=== PATIENT | female | born 1945 | race Caucasian/White ===

== ENCOUNTER 2025-02-12 15:38 | Emergency (ER) | payer MEDICARE, OTHER, SELFPAY ==
[2025-02-12] VITALS (19 sets, daily range): BP systolic 112–192; BP diastolic 53–76; PULSE 60–63; RESP 9–31; TEMP 37; O2SAT 94–99; BMI 21.8
--- NOTE | 2025-02-12 18:13 | DI.CT.S_ITS ---
PROCEDURE: CT ANGIO ABD/PEL GI BLEED INDICATIONS: gi bleed TECHNIQUE: After the administration of intravenous contrast, 2.5 mm thick sections acquired from the diaphragm to the symphysis. 10 mm maximum-intensity projection (MIP) reformats were then acquired. For radiation dose reduction, the following was used: automated exposure control. COMPARISON: None. FINDINGS: Image Quality: Diagnostic. Abdominal aorta: No aortic aneurysm or evidence of acute aortic syndrome. Mesenteric arteries: Active GI hemorrhage within the sigmoid colon (series 5, image 168) prior Renal arteries: Patent without hemodynamically significant stenosis. OTHER: Lower Chest: Volume loss within the lingula. Liver: No solid mass. Gallbladder: Large gallstone. No wall thickening. Biliary ducts: No biliary dilation. Pancreas: No ductal dilation. Spleen: Size is within normal limits. Adrenal Glands: No adrenal nodules. Kidneys and Ureters: No hydronephrosis. No solid mass. No complex renal cystic lesion which requires follow up. Stomach and Bowel: Normal colonic caliber, without significant wall thickening. No significant diverticular disease. Peritoneum: No abnormal intraperitoneal fluid. No free air. Ventral Wall: No hernia. Abdominal Nodes: No retroperitoneal or mesenteric adenopathy by size criteria. Vessels: Aorta and inferior vena cava are normal in size. PELVIS: Pelvic Organs: Unremarkable. Bladder: Unremarkable. Pelvic Nodes: No enlarged lymph nodes. Miscellaneous: No inguinal hernias are seen. Bones: No aggressive osseous abnormality. Surgical fusion the lower lumbar spine. Extensive degenerative disc disease. IMPRESSION: Active GI hemorrhage of the sigmoid colon. No significant diverticular disease. Cholelithiasis without wall thickening or adjacent fat stranding to suggest acute cholecystitis. Findings discussed with Dr. Edouard at 7:09 p.mSukh On 02/12/2025. Dictated by: Quirino Milton M.D. on 02/12/2025 at 19:07 Approved by: Quirino Milton M.D. on 02/12/2025 at 19:11
--- NOTE | 2025-02-12 19:11 | PC.NURSE ---
patient is currently in the bathroom, large amount of latasha blood noted, will notify dr Edouard
[2025-02-12 19:12] LABS: Add Manual Diff / Slide Review NO; Hematocrit 36.4 % (36-46); Hemoglobin 12.0 g/dL (12.0-16.0); Lymphocytes Absolute Auto 1400 /uL (1100-4500); Mean Corpuscular HGB Conc 32.9 % (30-36); Mean Corpuscular Hemoglobin 29.8 PG (26-34); Mean Corpuscular Volume 90.5 fL (80-100); Platelet Count 221 X10^3/uL (150-400)
--- NOTE | 2025-02-12 19:19 | ED_ITS ---
HPI - GI Bleed <Abebe Edouard, DO - Last Filed: 02/13/25 07:03> General Chief complaint: GI Bleed Stated complaint: blood in stole Time Seen by Provider: 02/12/25 18:03 Source: patient and family Mode of arrival: Ambulatory History of Present Illness HPI Narrative: 79-year-old female visiting the area with a past medical history significant for atrial fibrillation, pacemaker on Plavix presents with numerous bouts of GI bleed today sudden onset. Patient denies fever chills chest pain shortness breath lightheaded or dizziness. She denies taking any NSAIDs but only Tylenol. Patient has had numerous bouts of bloody diarrhea here in the ER. Other than what is stated 14 point review of system is negative. Related Data Home Medications ?Medication ?Instructions ?Recorded ?Confirmed clopidogrel 75 mg tablet (Plavix) 75 mg PO DAILY 02/1202/12/25 furosemide 20 mg tablet 20 mg PO DAILY PRN weight ga in 02/12/25 02/12/25 levothyroxine 75 mcg capsule 37.5 mcg PO BID 02/12/25 02/12/25 liothyronine 5 mcg tablet 2.5 mcg PO BID 02/12/2501/29 losartan 25 mg tablet 25 mg PO BID 02/12/25 mirtazapine 7.5 mg tablet 7.5 mg PO BEDTIME 02/12/25 0 02/12/25 multivitamin (Daily Multi-Vitamin 1 tab PO DAILY 02/1202/12/25 tablet) pantoprazole 40 mg tablet,delayed 40 mg PO DAILY 02/1202/12/25 release rosuvastatin 10 mg tablet 10 mg PO DAILY 02/12/2501/29 sotalol 80 mg tablet 80 mg PO Q12H 02/12/2502/12 Allergies Allergy/AdvReac Type Severity Reaction Status Date / Time azithromycin Allergy Unknown Verified 02/12/25 19:48 erythromycin base Allergy Unknown Verified 02/12/25 19:48 Review of Systems <Abebe Edouard DO - Last Filed: 02/13/25 07:03> Review of Systems ROS Unobtainable: All systems reviewed & are unremarkable except as noted in HPI and below Patient History <Abebe Edouard DO - Last Filed: 02/13/25 07:03> Social History Smoking Status: Never smoker Smoking Status: Never smoker Alcohol type: wine Exam <Abebe Edouard DO - Last Filed: 02/13/25 07:03> Narrative Exam Narrative: GENERAL: [79] year old patient appears stated age. Well-developed patient, in mild distress. HEAD: Atraumatic. Normocephalic. EYES: Pupils equal round and reactive. Extraocular motions intact. No scleral icterus. No injection or drainage. NECK: Trachea midline. Non tender CARDIOVASCULAR: Regular rate and rhythm without murmurs, gallops, or rubs. RESPIRATORY: Clear to auscultation. Breath sounds equal bilaterally. No wheezes, rales, or rhonchi. GASTROINTESTINAL: Abdomen soft, non-tender, nondistended. Rectum: No anal fissure or hemorrhoids EXTREMITIES: No edema or joint tenderness. BACK: Nontender without deformity or crepitance. No flank tenderness. NEURO: AOx3. SKIN: No rash or erythema of visible areas Initial Vital Signs Initial Vital Signs: Vital Signs Temperature 98.6 F 02/12/25 16:00 Pulse Rate 60 02/12/25 16:00 Respiratory Rate 18 02/12/25 16:00 Blood Pressure 146/70 H 02/12/25 16:00 Pulse Oximetry 98 02/12/25 16:00 Oxygen Delivery Method Room Air 02/12/25 16:00 <Anton Ward MD - Last Filed: 02/13/25 16:50> Initial Vital Signs Initial Vital Signs: Vital Signs Temperature 98.6 F 02/12/25 16:00 Pulse Rate 60 02/12/25 16:00 Respiratory Rate 18 02/12/25 16:00 Blood Pressure 146/70 H 02/12/25 16:00 Pulse Oximetry 98 02/12/25 16:00 Oxygen Delivery Method Room Air 02/12/25 16:00 Course <Abebe Edouard DO - Last Filed: 02/13/25 07:03> Orders Ordered: ED Orders 02/13/25 08:06 CBC Auto Diff [Complete Blood Count AUTO DIFF] Stat 02/13/25 08:45 transfuse [Packed Cells] Stat Discontinued Medications Acetaminophen (Acetaminophen 325 Mg Tablet) 650 mg PO Q6H PRN PRN Reason: Fever/Mild Pain (1-3) Lactated Ringer's (Lactated Ringers) 1,000 mls @ 1,000 mls/hr IV BOLUS ONE Stop: 02/12/25 19:12 Last Infusion: 02/12/25 22:24 Dose: Infused Documented By: HNAb Admin: 02/12/25 20:16 Dose: 1,000 mls/hr Documented By: JASPREET Sodium Chloride (Normal Saline 0.9%) 1,000 mls @ 100 mls/hr IV CONT AIME Last Admin: 02/13/25 01:15 Dose: Not Given Documented By: AB Lactated Ringer's (Lactated Ringers) 1,000 mls @ 1,000 mls/hr IV BOLUS ONE Stop: 02/13/25 00:28 Last Infusion: 02/13/25 02:26 Dose: Infused Documented By: Admin: 02/13/25 01:22 Dose: 1,000 mls/hr Documented By: AB Lactated Ringer's (Lactated Ringers) 1,000 mls @ 150 mls/hr IV CONT AIME Last Infusion: 02/13/25 09:24 Dose: Infused Documented By: Admin: 02/13/25 03:41 Dose: 150 mls/hr Documented By: AB Naloxone HCl (Naloxone 0.4 Mg/Ml Vial) 0.2 mg IV Q2MIN PRN PRN Reason: Opiate Reversal Ondansetron HCl (Ondansetron 4 Mg/2 Ml Inj) 4 mg IV NOW PRN PRN Reason: Nausea And Vomiting Ondansetron HCl (Ondansetron 4 Mg Odt) 4 mg PO NOW PRN PRN Reason: Nausea And Vomiting Pantoprazole Sodium (Pantoprazole 40 Mg Vial) 40 mg IV NOW ONE Stop: 02/12/25 20:51 Last Admin: 02/12/25 21:16 Dose: 40 mg Documented By: JASPREET Pantoprazole Sodium (Pantoprazole 40 Mg Vial) 40 mg IV BID AIME Polyethylene Glycol/Electrolytes ([id number]/Sod Sulf,Bicarb,Cl/Kcl 4,000 Ml Solution) 2,000 ml PO NOW ONE Stop: 02/12/25 21:00 Last Admin: 02/13/25 01:15 Dose: Not Given Documented By: AB Vital Signs Vital signs: Vital Signs - 8 hr 02/13/25 09:00 02/13/25 09:00 02/13/25 09:15 Temperature Pulse Rate 60 62 Respiratory Rate 16 22 Blood Pressure 95/50 L Pulse Oximetry 98 98 Oxygen Delivery Method 02/13/25 09:15 02/13/25 09:25 02/13/25 09:26 Temperature 98.1 F Pulse Rate 60 60 Respiratory Rate 21 27 H Blood Pressure 109/59 L 85/47 L Pulse Oximetry 99 Oxygen Delivery Method 02/13/25 09:26 02/13/25 09:30 02/13/25 09:30 Temperature Pulse Rate 60 Respiratory Rate 22 Blood Pressure 85/47 L 94/51 L Pulse Oximetry 99 Oxygen Delivery Method 02/13/25 09:45 02/13/25 09:45 02/13/25 09:45 Temperature 97.4 F L Pulse Rate 60 60 Respiratory Rate 25 H 28 H Blood Pressure 96/55 L 97/54 L Pulse Oximetry 98 Oxygen Delivery Method 02/13/25 09:48 02/13/25 09:48 02/13/25 10:00 Temperature Pulse Rate 60 60 Respiratory Rate 17 15 Blood Pressure 96/55 L Pulse Oximetry 98 98 Oxygen Delivery Method 02/13/25 10:00 02/13/25 10:15 02/13/25 10:15 Temperature Pulse Rate 61 Respiratory Rate 23 Blood Pressure 86/49 L 89/51 L Pulse Oximetry 97 Oxygen Delivery Method 02/13/25 10:18 02/13/25 10:30 02/13/25 10:30 Temperature 98.1 F Pulse Rate 60 60 Respiratory Rate 24 17 Blood Pressure 89/51 L 89/51 L Pulse Oximetry 96 Oxygen Delivery Method 02/13/25 10:45 02/13/25 10:45 02/13/25 10:50 Temperature 97.4 F L Pulse Rate 60 60 Respiratory Rate 18 19 Blood Pressure 100/50 L 100/50 L Pulse Oximetry 96 Oxygen Delivery Method 02/13/25 11:00 02/13/25 11:00 02/13/25 11:15 Temperature Pulse Rate 60 Respiratory Rate 18 Blood Pressure 106/56 L 102/50 L Pulse Oximetry 95 Oxygen Delivery Method 02/13/25 11:15 02/13/25 11:30 02/13/25 11:30 Temperature Pulse Rate 60 60 Respiratory Rate 16 20 Blood Pressure 86/50 L Pulse Oximetry 96 96 Oxygen Delivery Method 02/13/25 11:31 02/13/25 11:37 02/13/25 11:37 Temperature 97.7 F Pulse Rate 60 60 Respiratory Rate 16 21 Blood Pressure 86/50 L 93/52 L Pulse Oximetry 95 Oxygen Delivery Method 02/13/25 11:45 02/13/25 11:45 02/13/25 11:47 Temperature 97.5 F L Pulse Rate 60 60 Respiratory Rate 17 14 Blood Pressure 95/47 L 95/47 L Pulse Oximetry 96 Oxygen Delivery Method 02/13/25 12:00 02/13/25 12:00 02/13/25 12:15 Temperature 98.6 F Pulse Rate 60 60 60 Respiratory Rate 16 19 20 Blood Pressure 96/52 L 96/51 L 96/53 L Pulse Oximetry 96 97 Oxygen Delivery Method Room Air <Anton Ward MD - Last Filed: 02/13/25 16:50> Orders Ordered: ED Orders 02/13/25 08:06 CBC Auto Diff [Complete Blood Count AUTO DIFF] Stat 02/13/25 08:45 transfuse [Packed Cells] Stat Discontinued Medications Acetaminophen (Acetaminophen 325 Mg Tablet) 650 mg PO Q6H PRN PRN Reason: Fever/Mild Pain (1-3) Lactated Ringer's (Lactated Ringers) 1,000 mls @ 1,000 mls/hr IV BOLUS ONE Stop: 02/12/25 19:12 Last Infusion: 02/12/25 22:24 Dose: Infused Documented By: Admin: 02/12/25 20:16 Dose: 1,000 mls/hr Documented By: JASPREET Sodium Chloride (Normal Saline 0.9%) 1,000 mls @ 100 mls/hr IV CONT AIME Last Admin: 02/13/25 01:15 Dose: Not Given Documented By: AB Lactated Ringer's (Lactated Ringers) 1,000 mls @ 1,000 mls/hr IV BOLUS ONE Stop: 02/13/25 00:28 Last Infusion: 02/13/25 02:26 Dose: Infused Documented By: Admin: 02/13/25 01:22 Dose: 1,000 mls/hr Documented By: AB Lactated Ringer's (Lactated Ringers) 1,000 mls @ 150 mls/hr IV CONT AIME Last Infusion: 02/13/25 09:24 Dose: Infused Documented By: Admin: 02/13/25 03:41 Dose: 150 mls/hr Documented By: AB Naloxone HCl (Naloxone 0.4 Mg/Ml Vial) 0.2 mg IV Q2MIN PRN PRN Reason: Opiate Reversal Ondansetron HCl (Ondansetron 4 Mg/2 Ml Inj) 4 mg IV NOW PRN PRN Reason: Nausea And Vomiting Ondansetron HCl (Ondansetron 4 Mg Odt) 4 mg PO NOW PRN PRN Reason: Nausea And Vomiting Pantoprazole Sodium (Pantoprazole 40 Mg Vial) 40 mg IV NOW ONE Stop: 02/12/25 20:51 Last Admin: 02/12/25 21:16 Dose: 40 mg Documented By: JASPREET Pantoprazole Sodium (Pantoprazole 40 Mg Vial) 40 mg IV BID AIME Polyethylene Glycol/Electrolytes ([id number]/Sod Sulf,Bicarb,Cl/Kcl 4,000 Ml Solution) 2,000 ml PO NOW ONE Stop: 02/12/25 21:00 Last Admin: 02/13/25 01:15 Dose: Not Given Documented By: AB Vital Signs Vital signs: Vital Signs - 8 hr 02/13/25 09:00 02/13/25 09:00 02/13/25 09:15 Temperature Pulse Rate 60 62 Respiratory Rate 16 22 Blood Pressure 95/50 L Pulse Oximetry 98 98 Oxygen Delivery Method 02/13/25 09:15 02/13/25 09:25 02/13/25 09:26 Temperature 98.1 F Pulse Rate 60 60 Respiratory Rate 21 27 H Blood Pressure 109/59 L 85/47 L Pulse Oximetry 99 Oxygen Delivery Method 02/13/25 09:26 02/13/25 09:30 02/13/25 09:30 Temperature Pulse Rate 60 Respiratory Rate 22 Blood Pressure 85/47 L 94/51 L Pulse Oximetry 99 Oxygen Delivery Method 02/13/25 09:45 02/13/25 09:45 02/13/25 09:45 Temperature 97.4 F L Pulse Rate 60 60 Respiratory Rate 25 H 28 H Blood Pressure 96/55 L 97/54 L Pulse Oximetry 98 Oxygen Delivery Method 02/13/25 09:48 02/13/25 09:48 02/13/25 10:00 Temperature Pulse Rate 60 60 Respiratory Rate 17 15 Blood Pressure 96/55 L Pulse Oximetry 98 98 Oxygen Delivery Method 02/13/25 10:00 02/13/25 10:15 02/13/25 10:15 Temperature Pulse Rate 61 Respiratory Rate 23 Blood Pressure 86/49 L 89/51 L Pulse Oximetry 97 Oxygen Delivery Method 02/13/25 10:18 02/13/25 10:30 02/13/25 10:30 Temperature 98.1 F Pulse Rate 60 60 Respiratory Rate 24 17 Blood Pressure 89/51 L 89/51 L Pulse Oximetry 96 Oxygen Delivery Method 02/13/25 10:45 02/13/25 10:45 02/13/25 10:50 Temperature 97.4 F L Pulse Rate 60 60 Respiratory Rate 18 19 Blood Pressure 100/50 L 100/50 L Pulse Oximetry 96 Oxygen Delivery Method 02/13/25 11:00 02/13/25 11:00 02/13/25 11:15 Temperature Pulse Rate 60 Respiratory Rate 18 Blood Pressure 106/56 L 102/50 L Pulse Oximetry 95 Oxygen Delivery Method 02/13/25 11:15 02/13/25 11:30 02/13/25 11:30 Temperature Pulse Rate 60 60 Respiratory Rate 16 20 Blood Pressure 86/50 L Pulse Oximetry 96 96 Oxygen Delivery Method 02/13/25 11:31 02/13/25 11:37 02/13/25 11:37 Temperature 97.7 F Pulse Rate 60 60 Respiratory Rate 16 21 Blood Pressure 86/50 L 93/52 L Pulse Oximetry 95 Oxygen Delivery Method 02/13/25 11:45 02/13/25 11:45 02/13/25 11:47 Temperature 97.5 F L Pulse Rate 60 60 Respiratory Rate 17 14 Blood Pressure 95/47 L 95/47 L Pulse Oximetry 96 Oxygen Delivery Method 02/13/25 12:00 02/13/25 12:00 02/13/25 12:15 Temperature 98.6 F Pulse Rate 60 60 60 Respiratory Rate 16 19 20 Blood Pressure 96/52 L 96/51 L 96/53 L Pulse Oximetry 96 97 Oxygen Delivery Method Room Air MDM - GI Bleed <Abebe Edouard, DO - Last Filed: 02/13/25 07:03> Lab Data 02/13/25 08:06 02/12/25 19:00 Labs: Lab Results 02/12/25 02/12/25 02/12/25 Range/Units 19:00 19:35 23:15 WBC 6.3 (4.5-11.0) X10^3/uL RBC 4.02 (4.0-5.2) X10^6/uL Hgb 12.0 12.4 10.3 L (12.0-16.0) g/dL Hct 36.4 37.8 30.6 L (36-46) % MCV 90.5 (80-100) fL MCH 29.8 (26-34) PG MCHC 32.9 (30-36) % RDW 14.1 (11.6-14.8) % Plt Count 221 (150-400) X10^3/uL Neut % (Auto) 64.4 (50-75) % Lymph % (Auto) 22.3 L (25-40) % Kimball % (Auto) 9.9 (3-14) % Eos % (Auto) 2.6 (2-4) % Baso % (Auto) 0.8 (0-2) % Neut # (Auto) 4100 (9440-9613) /uL Lymph # (Auto) 1400 (7890-4954) /uL Kimball # (Auto) 600 (0-900) /uL Eos # (Auto) 200 (0-450) /uL Baso # (Auto) 100 (0-100) /uL PT 12.2 (9.4-12.5) SECONDS INR 1.1 (0.9-1.3) APTT 27 (25.1-36.5) SECONDS Sodium 129 L (137-145) mmol/L Potassium 3.9 (3.4-5.1) mmol/L Chloride 96 L (98-107) mmol/L Carbon Dioxide 25 (22-32) mmol/L BUN 20 H (7-17) mg/dL Creatinine 0.73 (0.52-1.04) mg/dL Estimated GFR > 60 (>60) mL/min BUN/Creatinine Ratio 27.4 H (6-22) Glucose 130 H (70-99) mg/dL Calcium 8.8 (8.4-10.2) mg/dL Total Bilirubin 0.7 (0.2-1.3) mg/dL AST 36 (14-36) IU/L ALT 25 (<35) IU/L Alkaline Phosphatase 86 (38-126) U/L Total Protein 7.2 (6.3-8.2) g/dL Albumin 4.1 (3.5-5.0) g/dL Globulin 3.1 (1.7-4.1) g/dL Albumin/Globulin Ratio 1.3 (1.0-2.8) Blood Type A Positive Antibody Screen Negative Crossmatch See Detail 02/13/25 02/13/25 Range/Units 03:45 08:06 WBC 5.9 (4.5-11.0) X10^3/uL RBC 2.83 L (4.0-5.2) X10^6/uL Hgb 9.6 L 8.6 L (12.0-16.0) g/dL Hct 28.3 L 25.3 L (36-46) % MCV 89.6 (80-100) fL MCH 30.5 (26-34) PG MCHC 34.0 (30-36) % RDW 14.1 (11.6-14.8) % Plt Count 175 (150-400) X10^3/uL Neut % (Auto) 73.1 (50-75) % Lymph % (Auto) 16.0 L (25-40) % Kimball % (Auto) 8.1 (3-14) % Eos % (Auto) 2.2 (2-4) % Baso % (Auto) 0.6 (0-2) % Neut # (Auto) 4300 (8255-4467) /uL Lymph # (Auto) 900 L (2525-8971) /uL Kimball # (Auto) 500 (0-900) /uL Eos # (Auto) 100 (0-450) /uL Baso # (Auto) 0 (0-100) /uL PT (9.4-12.5) SECONDS INR (0.9-1.3) APTT (25.1-36.5) SECONDS Sodium (137-145) mmol/L Potassium (3.4-5.1) mmol/L Chloride (98-107) mmol/L Carbon Dioxide (22-32) mmol/L BUN (7-17) mg/dL Creatinine (0.52-1.04) mg/dL Estimated GFR (>60) mL/min BUN/Creatinine Ratio (6-22) Glucose (70-99) mg/dL Calcium (8.4-10.2) mg/dL Total Bilirubin (0.2-1.3) mg/dL AST (14-36) IU/L ALT (<35) IU/L Alkaline Phosphatase (38-126) U/L Total Protein (6.3-8.2) g/dL Albumin (3.5-5.0) g/dL Globulin (1.7-4.1) g/dL Albumin/Globulin Ratio (1.0-2.8) Blood Type Antibody Screen Crossmatch Urine Dip Bedside Urine Glucose Negative Bedside Urine Bilirubin - Negative Bedside Urine Ketone - Negative Urine Specific [place] 1.005 Bedside Urine Occult Blood - Negative Bedside Urine pH 6.5 Bedside Urine Protein - Negative Bedside Urine Urobilinogen - Negative Bedside Urine Nitrite - Negative Bedside Urine Leukocytes - Negative Esterase Imaging Data CT scan - abdomen/pelvis: Radiologist's Impression: [address] [address] [address] Scan Report Signed Patient: Tamara Frye MR#: [id number] : 1945 Acct:[id number] Age/Sex: 79 / F Date of Service: 02/12/25 Loc: ED Accession Number: [id number] Procedure: CT angio Abd/Pel GI Bleed Ordering Provider: Abebe Edouard D.O. PROCEDURE: CT ANGIO ABD/PEL GI BLEED INDICATIONS: gi bleed TECHNIQUE: After the administration of intravenous contrast, 2.5 mm thick sections acquired from the diaphragm to the symphysis. 10 mm maximum-intensity projection (MIP) reformats were then acquired. For radiation dose reduction, the following was used: automated exposure control. COMPARISON: None. FINDINGS: Image Quality: Diagnostic. Abdominal aorta: No aortic aneurysm or evidence of acute aortic syndrome. Mesenteric arteries: Active GI hemorrhage within the sigmoid colon (series 5, image 168) prior Renal arteries: Patent without hemodynamically significant stenosis. OTHER: Lower Chest: Volume loss within the lingula. Liver: No solid mass. Gallbladder: Large gallstone. No wall thickening. Biliary ducts: No biliary dilation. Pancreas: No ductal dilation. Spleen: Size is within normal limits. Adrenal Glands: No adrenal nodules. Kidneys and Ureters: No hydronephrosis. No solid mass. No complex renal cystic lesion which requires follow up. Stomach and Bowel: Normal colonic caliber, without significant wall thickening. No significant diverticular disease. Peritoneum: No abnormal intraperitoneal fluid. No free air. Ventral Wall: No hernia. Abdominal Nodes: No retroperitoneal or mesenteric adenopathy by size criteria. Vessels: Aorta and inferior vena cava are normal in size. PELVIS: Pelvic Organs: Unremarkable. Bladder: Unremarkable. Pelvic Nodes: No enlarged lymph nodes. Miscellaneous: No inguinal hernias are seen. Bones: No aggressive osseous abnormality. Surgical fusion the lower lumbar spine. Extensive degenerative disc disease. IMPRESSION: Active GI hemorrhage of the sigmoid colon. No significant diverticular disease. Cholelithiasis without wall thickening or adjacent fat stranding to suggest acute cholecystitis. Findings discussed with Dr. Edouard at 7:09 p.m. On 02/12/2025. Dictated by: Quirino Milton M.D. on 02/12/2025 at 19:07 Approved by: Quirino Milton M.D. on 02/12/2025 at 19:11 [facility] Narrative Medical decision making narrative: Vital signs, nurse triage note, medication list, previous ER visits, and all imaging studies reviewed. CT scan show active GI hemorrhage of the sigmoid colon. No significant diverticular disease. Cholelithiasis without wall thickening or adjacent fat stranding to suggest acute cholecystitis. Hemoglobin 12, platelet 221 INR 1.1 sodium 129 chloride 96 BUN [address] lukas LOZADA MD at [facility] who recommended IR at [facility] for embolization. Vital signs nurse triage note medication list this ER visits and all imaging study reviewed. Pt is typed and cross match, 2 large IV bore, case d/w hospitalist at [facility] who has graciously accepted pt for transfer. <Anton Ward MD - Last Filed: 02/13/25 16:50> Lab Data Labs: Lab Results 02/12/25 02/12/25 02/12/25 Range/Units 19:00 19:35 23:15 WBC 6.3 (4.5-11.0) X10^3/uL RBC 4.02 (4.0-5.2) X10^6/uL Hgb 12.0 12.4 10.3 L (12.0-16.0) g/dL Hct 36.4 37.8 30.6 L (36-46) % MCV 90.5 (80-100) fL MCH 29.8 (26-34) PG MCHC 32.9 (30-36) % RDW 14.1 (11.6-14.8) % Plt Count 221 (150-400) X10^3/uL Neut % (Auto) 64.4 (50-75) % Lymph % (Auto) 22.3 L (25-40) % Kimball % (Auto) 9.9 (3-14) % Eos % (Auto) 2.6 (2-4) % Baso % (Auto) 0.8 (0-2) % Neut # (Auto) 4100 (4595-6740) /uL Lymph # (Auto) 1400 (2259-4420) /uL Kimball # (Auto) 600 (0-900) /uL Eos # (Auto) 200 (0-450) /uL Baso # (Auto) 100 (0-100) /uL PT 12.2 (9.4-12.5) SECONDS INR 1.1 (0.9-1.3) APTT 27 (25.1-36.5) SECONDS Sodium 129 L (137-145) mmol/L Potassium 3.9 (3.4-5.1) mmol/L Chloride 96 L (98-107) mmol/L Carbon Dioxide 25 (22-32) mmol/L BUN 20 H (7-17) mg/dL Creatinine 0.73 (0.52-1.04) mg/dL Estimated GFR > 60 (>60) mL/min BUN/Creatinine Ratio 27.4 H (6-22) Glucose 130 H (70-99) mg/dL Calcium 8.8 (8.4-10.2) mg/dL Total Bilirubin 0.7 (0.2-1.3) mg/dL AST 36 (14-36) IU/L ALT 25 (<35) IU/L Alkaline Phosphatase 86 (38-126) U/L Total Protein 7.2 (6.3-8.2) g/dL Albumin 4.1 (3.5-5.0) g/dL Globulin 3.1 (1.7-4.1) g/dL Albumin/Globulin Ratio 1.3 (1.0-2.8) Blood Type A Positive Antibody Screen Negative Crossmatch See Detail 02/13/25 02/13/25 Range/Units 03:45 08:06 WBC 5.9 (4.5-11.0) X10^3/uL RBC 2.83 L (4.0-5.2) X10^6/uL Hgb 9.6 L 8.6 L (12.0-16.0) g/dL Hct 28.3 L 25.3 L (36-46) % MCV 89.6 (80-100) fL MCH 30.5 (26-34) PG MCHC 34.0 (30-36) % RDW 14.1 (11.6-14.8) % Plt Count 175 (150-400) X10^3/uL Neut % (Auto) 73.1 (50-75) % Lymph % (Auto) 16.0 L (25-40) % Kimball % (Auto) 8.1 (3-14) % Eos % (Auto) 2.2 (2-4) % Baso % (Auto) 0.6 (0-2) % Neut # (Auto) 4300 (7610-1001) /uL Lymph # (Auto) 900 L (6150-1509) /uL Kimball # (Auto) 500 (0-900) /uL Eos # (Auto) 100 (0-450) /uL Baso # (Auto) 0 (0-100) /uL PT (9.4-12.5) SECONDS INR (0.9-1.3) APTT (25.1-36.5) SECONDS Sodium (137-145) mmol/L Potassium (3.4-5.1) mmol/L Chloride (98-107) mmol/L Carbon Dioxide (22-32) mmol/L BUN (7-17) mg/dL Creatinine (0.52-1.04) mg/dL Estimated GFR (>60) mL/min BUN/Creatinine Ratio (6-22) Glucose (70-99) mg/dL Calcium (8.4-10.2) mg/dL Total Bilirubin (0.2-1.3) mg/dL AST (14-36) IU/L ALT (<35) IU/L Alkaline Phosphatase (38-126) U/L Total Protein (6.3-8.2) g/dL Albumin (3.5-5.0) g/dL Globulin (1.7-4.1) g/dL Albumin/Globulin Ratio (1.0-2.8) Blood Type Antibody Screen Crossmatch Urine Dip Bedside Urine Glucose Negative Bedside Urine Bilirubin - Negative Bedside Urine Ketone - Negative Urine Specific [place] 1.005 Bedside Urine Occult Blood - Negative Bedside Urine pH 6.5 Bedside Urine Protein - Negative Bedside Urine Urobilinogen - Negative Bedside Urine Nitrite - Negative Bedside Urine Leukocytes - Negative Esterase MDM Narrative Medical decision making narrative: Vital signs, nurse triage note, medication list, previous ER visits, and all imaging studies reviewed. CT scan show active GI hemorrhage of the sigmoid colon. No significant diverticular disease. Cholelithiasis without wall thickening or adjacent fat stranding to suggest acute cholecystitis. Hemoglobin 12, platelet 221 INR 1.1 sodium 129 chloride 96 BUN [address] lukas LOZADA MD at [facility] who recommended IR at [facility] for embolization. Vital signs nurse triage note medication list this ER visits and all imaging study reviewed. Pt is typed and cross match, 2 large IV bore, case d/w hospitalist at [facility] who has graciously accepted pt for transfer. February 13, 2025 at 7:[address] Ward: Sign-out from Dr. Edouard, patient has been accepted to [facility] but no beds available at this time. GI was contacted at [facility]. We will try to call [facility] again this morning as they do have Interventional Radiology and may have ability to transfer there as well. Patient is stable at this time. No transfusion indicated. The hospitalist at [facility] has accepted patient, there transfer system has already spoken with GI provider there and they will accept patient. 7:[address] Ward: I spoke with on-call radiologist at [facility], we will need to wait till 8:00 a.m. until interventional radiologist Dr. Alex Chan will be on-call. 8:30 a.m.. I spoke with Dr. Chan, interventional Radiology [facility], recommends fitter and turner to try colonoscopy 1st. He agrees to start transfusing patient. We are calling GI on-call at [facility]. Critical Care Time <Anton Ward MD - Last Filed: 02/13/25 16:50> Critical Care Time Attestation: Critical Care Time 35 minutes: Patient requiring blood transfusions Critical care time is separate from other billable procedures. This critical care time includes consultation with family and other consulting doctors, review of records, and interpretation of data from labs, EKGs, imaging, etc. Discharge Plan Departure Patient Disposition: [facility] Clinical Impression: GI (gastrointestinal bleed) Qualifiers: GI bleed type/associated pathology: diverticulitis Qualified Code(s): K57.93 - Diverticulitis of intestine, part unspecified, without perforation or abscess with bleeding Prescriptions: No Action pantoprazole 40 mg tablet,delayed release (DR/EC) 40 mg PO DAILY levothyroxine 75 mcg capsule 37.5 mcg PO BID liothyronine 5 mcg tablet 2.5 mcg PO BID sotalol 80 mg tablet 80 mg PO Q12H clopidogrel [Plavix] 75 mg tablet 75 mg PO DAILY rosuvastatin 10 mg tablet 10 mg PO DAILY losartan 25 mg tablet 25 mg PO BID multivitamin [Daily Multi-Vitamin] Tablet 1 tab PO DAILY furosemide 20 mg tablet 20 mg PO DAILY PRN (Reason: weight gain) mirtazapine 7.5 mg tablet 7.5 mg PO BEDTIME
[2025-02-12 19:21] LABS: INR 1.1 (0.9-1.3); Prothrombin Time 12.2 SECONDS (9.4-12.5)
[2025-02-12 19:24] LABS: PTT Partial Thromboplastin Tim 27 SECONDS (25.1-36.5)
[2025-02-12 19:26] LABS: Alanine Aminotransferase 25 IU/L (<35); Albumin 4.1 g/dL (3.5-5.0); Albumin Globulin Ratio 1.3 (1.0-2.8); Alkaline Phosphatase 86 U/L (38-126); Blood Urea Nitrogen 20 mg/dL (7-17); Calcium 8.8 mg/dL (8.4-10.2); Carbon Dioxide 25 mmol/L (22-32); Chloride 96 mmol/L (98-107); Estimated Glomerular Filt Rate > 60 mL/min (>60); Globulin 3.1 g/dL (1.7-4.1); Glucose 130 mg/dL (70-99); HEMOLYSIS < 15 (0-50); Potassium 3.9 mmol/L (3.4-5.1); Sodium 129 mmol/L (137-145); Total Protein 7.2 g/dL (6.3-8.2)
[2025-02-12 19:54] LABS: Hematocrit 37.8 % (36-46); Hemoglobin 12.4 g/dL (12.0-16.0)
--- NOTE | 2025-02-12 20:05 | PC.NURSE ---
Pt stated needing brief change. Pt with moderate amount of blood in brief. Pt reports feeling dizzy with episode of bowel movement. Pt informed she is not allowed to get out of bed at this time. continues to deny any abdominal pain
[2025-02-12] MEDS: LACTATED RINGERS 1,000 ML 1000 ML IV (20:16)
[2025-02-12] MEDS: PANTOPRAZOLE 40 MG VIAL IV (21:16)
--- NOTE | 2025-02-12 21:25 | PC.NURSE ---
Pt states she feels like her brief was pouring, brief had more than before amount of blood in it pts nurse aware
--- NOTE | 2025-02-12 23:10 | PC.NURSE ---
spoke to [facility] pumping supervisor at [facility] pt is accepted however they have no bed availability until day shift
[2025-02-12 23:24] LABS: Hematocrit 30.6 % (36-46); Hemoglobin 10.3 g/dL (12.0-16.0)
[2025-02-13] VITALS (59 sets, daily range): BP systolic 85–148; BP diastolic 47–92; PULSE 60–121; RESP 13–41; TEMP 36.3–37; O2SAT 94–100
--- NOTE | 2025-02-13 00:54 | PC.NURSE ---
Ragini Hinojosa (pt's sister) [phone]
[2025-02-13] MEDS: LACTATED RINGERS 1,000 ML 1000 ML IV (01:22)
--- NOTE | 2025-02-13 01:50 | PC.NURSE ---
Pt has no change from previous assessment. Pt has been informed of the wait for bed placement. We will continue to monitor for change in symptoms.
[2025-02-13] MEDS: LACTATED RINGERS 1,000 ML 150 ML IV (03:41)
[2025-02-13 03:55] LABS: Hematocrit 28.3 % (36-46); Hemoglobin 9.6 g/dL (12.0-16.0)
--- NOTE | 2025-02-13 05:45 | PC.NURSE ---
No change in pt status at this time. Pt still pending transfer. Has a peres catheter in due to urinary retention.
[2025-02-13 08:13] LABS: Add Manual Diff / Slide Review NO; Hematocrit 25.3 % (36-46); Hemoglobin 8.6 g/dL (12.0-16.0); Lymphocytes Absolute Auto 900 /uL (1100-4500); Mean Corpuscular HGB Conc 34.0 % (30-36); Mean Corpuscular Hemoglobin 30.5 PG (26-34); Mean Corpuscular Volume 89.6 fL (80-100); Platelet Count 175 X10^3/uL (150-400)
--- NOTE | 2025-02-13 13:14 | PC.NURSE ---
[id number] report given, report called to #[phone], to CATALINA Avelar at [facility], [address]. All questions answered to receiving RN. Patient expected to arrive to [facility], Room A610, by 1345 via [facility]. screw machine set up operator given handoff report by this RN. RBC's transfusion continues at time of transport. Blood products moved over to transport pumps and continued at rate of 275ml/hr. screw machine set up operator and team have no further questions. Patient denies any concerning symptoms or discomfort at time of transport. Patient's sister taking patients personal clothing, purse and other non-essential belongings home with her.
== END 2025-02-13 13:20 | disposition short-term general hospital (02) ==
PROVIDERS: Emergency Medicine; Family Medicine; Emergency Provider Emergency Medicine; Family Provider Internal Medicine
DX: K57.33 Diverticulitis of large intestine without perforation or abscess with bleeding (principal); I48.91 Unspecified atrial fibrillation; Z79.02 Long term (current) use of antithrombotics/antiplatelets; Z95.0 Presence of cardiac pacemaker
CPT/HCPCS: 36415; 36430; 74174; 80053; 81003; 85014; 85018; 85025; 85610; 85730; 86850; 86900; 86901; 96360; 96361; 99285; 99291; P9016; J2470; Q9967